=== PATIENT | female | born 1970 | race Caucasian/White ===

== ENCOUNTER 2020-06-29 19:42 | Emergency (ER) | payer OTHER ==
[~2020-06-29 19:42] MED LIST: AUGMENTIN 875-1 EACH PO; BACTRIM DS TAB1 EACH PO; KEFLEX500 MG PO; NORCO 7.5-3251 EACH PO; NORVASC5 MG PO; PRILOSEC20 MG PO
[2020-06-29 23:48] LABS: BASOPHIL 1.1 % (0-2); EOSINOPHIL 3.7 % (0-5); HCT 40.7 % (37.0-47.0); HGB 13.8 g/dl (12.5-16.0); LYMPHOCYTE 34.7 % (15-48); MCH 33.4 pg (25.0-31.0); MCHC 33.9 g/dL (32.0-36.0); MCV 98.5 fL (78.0-100.0); MONOCYTE 9.8 % (0-12); MPV 10.6 fL (6.0-9.5); NEUTROPHIL 50.4 % (41-80); NRBC 0; PLT 190 K/uL (150-400); RBC 4.13 M/uL (4.20-5.40); RDW 12.6 % (11.5-14.0); WBC 6.5 K/uL (4.0-10.5)
[2020-06-29 23:56] LABS: BILIRUBIN NEGATIVE (NEGATIVE); BLOOD 2+ Ery/uL (NEGATIVE); CLARITY CLEAR (CLEAR); COLOR YELLOW (YELLOW); GLUCOSE (U) NORMAL (NORMAL); LEUKOCYTES NEGATIVE Leu/uL (NEGATIVE); NITRITE POSITIVE (NEGATIVE); PROTEIN TRACE (LOW) mg/dL (NEGATIVE); SPECIFIC GRAVITY 1.015 (1.001-1.030)
[2020-06-30] LABS: ALBUMIN 3.9 g/dL (3.4-5.0); BILIRUBIN - TOTAL 0.4 mg/dL (0.2-1.0); BUN/CREAT RATIO (CALC) 20.8 RATIO; CREATININE 1.01 mg/dL (0.51-0.95); GLOBULIN (CALCULATION) 2.9 g/dL; POTASSIUM 4.7 mmol/L (3.5-5.1); TOTAL PROTEIN 6.8 g/dL (6.4-8.2)
[2020-06-30 00:02] LABS: BACTERIA TRACE
[2020-06-30] MEDS ORDERED: CIPRO500 MG PO (04:16)
== END 2020-06-30 04:31 | disposition home or self-care (01) ==
LOC: FER 19:42
PROVIDERS: Emergency Medicine
DX: N39.0 Urinary tract infection, site not specified (principal); N13.30 Unspecified hydronephrosis; F17.290 Nicotine dependence, other tobacco product, uncomplicated; Z90.49 Acquired absence of other specified parts of digestive tract; Z98.890 Other specified postprocedural states
CPT/HCPCS: 36415; 80053; 81001; 83690; 85025; 87088; Q9967

== ENCOUNTER 2020-10-24 12:05 | Emergency (ER) | payer OTHER ==
[~2020-10-24 12:05] MED LIST changes: +CIPRO500 MG PO
[2020-10-24] MEDS ORDERED: LIDOCAINE 5% P1 EACH TOP (13:55)
[2020-10-24] MEDS ORDERED: PREDNISONE 20MG20 MG PO (13:55)
[2020-10-24] MEDS ORDERED: FLEXERIL5 MG PO (13:55)
== END 2020-10-24 14:15 | disposition home or self-care (01) ==
LOC: FER 12:05
DX: M51.26 Other intervertebral disc displacement, lumbar region (principal); K21.9 Gastro-esophageal reflux disease without esophagitis; Z79.899 Other long term (current) drug therapy
CPT/HCPCS: 72131; J1885